=== PATIENT | male | born 1990 | race Two or more races ===

== ENCOUNTER → 2024-11-18 | Emergency (ER) | payer OTHER ==
[~2024-11-18] VITALS: Ht 182.9 cm; Wt 77.1 kg
[~2024-11-18] MED LIST: CEFTRIAXONE SODIUM 1,000 MG VIAL IM ONE; CEFTRIAXONE SODIUM 1,000 MG VIAL ONE; DIPHTH,PERTUSS(ACELL),TET VAC 0.5 ML SYRINGE IM ONE; HYDROGEN PEROXIDE 473 ML BOTTLE TOP ONE; LIDOCAINE HCL 1% 10ML VIAL ONE; LIDOCAINE HCL/MPF 1% 5ML VIAL IJ ONE; TETANUS & DIPHTHERIA TOX,ADULT 0.5 ML VIAL IM ONE
== END | disposition home or self-care (01) ==
LOC: ER 12:59
DX: S01.81XA Laceration without foreign body of other part of head, initial encounter (principal); X83.8XXA Intentional self-harm by other specified means, initial encounter; Y93.89 Activity, other specified; Y92.89 Other specified places as the place of occurrence of the external cause; Y99.9 Unspecified external cause status